=== PATIENT | male | born 1955 | race Caucasian/White ===

== ENCOUNTER 2021-12-21 19:54 | Emergency (ER) | payer OTHER ==
[2021-12-21 20:50] LABS: ALBUMIN 4.1 g/dL (3.4-4.8)
[2021-12-21 20:52] LABS: CALCIUM 9.7 mg/dL (8.3-10.5); HEMATOCRIT 43.6 % (42.0-52.0); HEMOGLOBIN 14.5 g/dL (13.5-18.0); MEAN CELL VOLUME 86 fl (78-100); MEAN CORPUSCULAR HEMOGLOBIN 29 pg (27-31); MEAN CORPUSCULAR HGB CONC 33 g/dL (33-37); MEAN PLATELET VOLUME 10.2 fl (7.4-10.4); PLATELET COUNT 146 K/mm3 (130-400); RED BLOOD COUNT 5.05 M/mm3 (4.20-5.60); WHITE BLOOD COUNT 7.9 K/mm3 (4.8-10.8)
[2021-12-21 20:53] LABS: TOTAL PROTEIN 6.9 g/dL (6.2-8.1)
[2021-12-21 20:55] LABS: TOTAL BILIRUBIN 1.3 mg/dL (0.2-1.2)
[2021-12-21 20:59] LABS: URINE APPEARANCE CLOUDY; URINE BILIRUBIN NEGATIVE (NEGATIVE); URINE COLOR YELLOW; URINE GLUCOSE NEGATIVE (NEGATIVE)
[2021-12-21 21:00] LABS: URINE KETONE 2+ (NEGATIVE); URINE NITRATE POSITIVE (NEGATIVE); URINE PROTEIN(semi-quant) 1+ (NEGATIVE); URINE UROBILINOGEN NORMAL (NORMAL)
[2021-12-21 21:01] LABS: URINE BLOOD 250 ery/uL (NEGATIVE); URINE LEUKOCYTE ESTERASE 2+ (NEGATIVE); URINE WBC >50 /hpf (0-3)
[2021-12-21 21:29] LABS: LYMPHOCYTE 2 % (20-51); MONOCYTE 4 % (3-10); NEUTROPHILS 94 % (42-75)
[2021-12-21] MEDS ORDERED: SEPTRA DS 8001 TAB PO (21:47)
[2021-12-21 23:17] VITALS: BP 129/74
[2021-12-24] MEDS ORDERED: MACROBID 100 M100 MG PO (11:18)
== END 2021-12-21 23:18 | disposition home or self-care (01) ==
LOC: ED 19:54
PROVIDERS: Family Medicine
DX: N10 Acute pyelonephritis (principal); Z28.310 Unvaccinated for COVID-19; Z88.0 Allergy status to penicillin
CPT/HCPCS: J0696; J7030